=== PATIENT | female | born 2000 | race African-American/Black ===

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

== ENCOUNTER 2019-02-15 19:27 | Emergency (ER) | payer OTHER ==
[~2019-02-15] VITALS: Ht 165.1 cm; Wt 108.0 kg
[2019-02-15 19:29] VITALS: BP 139/85
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
== END 2019-02-15 19:57 | disposition home or self-care (01) ==
LOC: ER 19:27
DX: O9A.212 Injury, poisoning and certain other consequences of external causes complicating pregnancy, second trimester (principal); S00.12XA Contusion of left eyelid and periocular area, initial encounter; Z3A.24 24 weeks gestation of pregnancy; Y00.XXXA Assault by blunt object, initial encounter; Y93.89 Activity, other specified; Y92.89 Other specified places as the place of occurrence of the external cause; Y99.8 Other external cause status
CPT/HCPCS: 99281